=== PATIENT | female | born 1985 | race Two or more races ===

== ENCOUNTER 2020-04-30 14:45 | Inpatient (IN) | payer OTHER ==
[~2020-04-30] VITALS: Ht 154.9 cm; Wt 3.2 kg
[2020-06-23] MEDS ORDERED: PRENATABS RX T1 EACH PO (16:55)
[2020-06-23] MEDS ORDERED: VALTREX1000 MG PO (16:55)
== END 2020-06-27 11:32 | disposition home or self-care (01) | DRG 788 ==
LOC: SURH 06-17 14:45 → LDR 06-23 15:18 → SURG-SUITE 06-23 15:18
PROVIDERS: ADMIT Obstetrics & Gynecology; ATTEND Obstetrics & Gynecology
PROC: 10D00Z1 Extraction of Products of Conception, Low, Open Approach (ICD-10-PCS; principal; 2020-06-23)
PROC: 4A1HXFZ Monitoring of Products of Conception, Cardiac Rhythm, External Approach (ICD-10-PCS; 2020-06-23)
DX: O61.8 Other failed induction of labor (principal); Z3A.41 41 weeks gestation of pregnancy; Z37.0 Single live birth; Z20.822 Contact with and (suspected) exposure to COVID-19

== ENCOUNTER 2020-06-15 09:13 | Outpatient (CLI) | payer OTHER | END 2020-06-15 10:26 | disposition home or self-care (01) | LOC: NST 09:13 | PROVIDERS: ATTEND Obstetrics & Gynecology Maternal & Fetal Medicine | DX: Z34.83 Encounter for supervision of other normal pregnancy, third trimester (principal) ==

== ENCOUNTER 2020-06-19 09:05 | Outpatient (CLI) | payer OTHER | END 2020-06-19 10:02 | disposition home or self-care (01) | LOC: NST 09:05 | PROVIDERS: ATTEND Obstetrics & Gynecology Maternal & Fetal Medicine | DX: Z34.83 Encounter for supervision of other normal pregnancy, third trimester (principal) ==

== ENCOUNTER 2020-06-22 08:00 | Outpatient (CLI) | payer OTHER ==
[2020-06-23] MEDS ORDERED: VALTREX1000 MG PO (16:55)
[2020-06-23] MEDS ORDERED: PRENATABS RX T1 EACH PO (16:55)
== END 2020-06-22 08:56 | disposition home or self-care (01) ==
LOC: NST 08:00
PROVIDERS: ATTEND Obstetrics & Gynecology Maternal & Fetal Medicine
DX: Z34.82 Encounter for supervision of other normal pregnancy, second trimester (principal)